=== PATIENT | female | born 1985 | race Caucasian/White ===

== ENCOUNTER 2024-02-17 00:53 | Inpatient (IN) | payer MEDICAID ==
[~2024-02-17] VITALS: Ht 162.6 cm; Wt 73.9 kg
[2024-02-17] MEDS: LORAZEPAM 2MG/ML INJ IM ONE (01:23)
[2024-02-17] MEDS: DIPHENHYDRAMINE 50MG/ML VIAL IM ONE (01:23)
[2024-02-17] MEDS: HALOPERIDOL LACTATE 5MG/ML VIAL IM ONE (01:23)
[2024-02-17 02:47] LABS: BASOPHILS % 0.5 % (0.0-2.0); DIFFERENTIAL COMMENT 0; EOSINOPHILS % 0.4 % (0.0-5.0); HEMOGLOBIN. 12.2 g/dL (12.0-16.0); LYMPHOCYTES % 8.2 % (20.0-50.0); MEAN CORPUSCULAR HEMOGLOBIN 25.6 pg (28.0-32.0); MEAN CORPUSCULAR HGB CONC 32.2 g/dL (31.0-37.0); MEAN CORPUSCULAR VOLUME 79.5 fL (81.0-99.0); MEAN PLATELET VOLUME 9.6 fl (7.4-10.4); MONOCYTES % 7.2 % (2.0-8.0); NEUTROPHILS % 83.7 % (40.0-76.0); PLATELET 188 x1000/uL (130-400); RED BLOOD CELL COUNT 4.78 mill/uL (4.2-5.4); WHITE BLOOD COUNT 11.5 x1000/uL (4.5-11.0)
[2024-02-17 02:54] LABS: CHLORIDE 105 mEq/L (98-107); SODIUM 138 mEq/L (136-145)
[2024-02-17 02:55] LABS: CALCIUM 9.6 mg/dL (8.7-10.4); CARBON DIOXIDE 27 mEq/L (21-32)
[2024-02-17 03:00] LABS: CREATININE 0.9 mg/dL (0.6-1.0); GLUCOSE 99 mg/dL (70-105); UREA NITROGEN BLOOD 10 mg/dL (9-23)
[2024-02-17 03:02] LABS: ACETAMINOPHEN < 2 ug/mL (10-30)
[2024-02-17 03:09] LABS: HCG SCREEN NEGATIVE
[2024-02-17 03:14] LABS: ETHANOL BLOOD < 10 mg/dL (<10)
[2024-02-17] MEDS ORDERED: ONDANSETRON HCL 4MG/2ML INJ IV PRN (05:15)
[2024-02-17] MEDS ORDERED: HYDRALAZINE 20MG/ML VIAL IV PRN (05:15)
[2024-02-17] MEDS ORDERED: MAGNESIUM/ALUMINUM HYDROXIDE/SIMETHICONE 30ML UDC PO PRN (05:15)
[2024-02-17] MEDS ORDERED: CLONIDINE 0.1MG TABLET PO PRN (05:15)
[2024-02-17] MEDS ORDERED: GUAIFENESIN 200MG/10ML SUGAR FREE UDC PO PRN (05:15)
[2024-02-17] MEDS ORDERED: LORAZEPAM 2MG/ML INJ IV PRN (05:15)
[2024-02-17] MEDS ORDERED: ACETAMINOPHEN 325MG TABLET PO PRN (05:15)
[2024-02-17] MEDS ORDERED: DOCUSATE SODIUM 100MG CAPSULE PO PRN (05:15)
[2024-02-17] MEDS: PANTOPRAZOLE SODIUM 40 MG/VIAL IV SCH (05:30)
[2024-02-17] MEDS: MVI, ADULT NO.1 10 ML, FOLIC ACID 1 MG, THIAMINE HCL 100 MG in SODIUM CHLORIDE 0.9% 1,0... IV NR (06:00)
[2024-02-17 11:26] LABS: CHLORIDE 106 mEq/L (98-107); POTASSIUM 3.4 mEq/L (3.5-5.1); SODIUM 140 mEq/L (136-145)
[2024-02-17 11:27] LABS: CARBON DIOXIDE 26 mEq/L (21-32)
[2024-02-17 11:28] LABS: CALCIUM 8.7 mg/dL (8.7-10.4)
[2024-02-17 11:31] LABS: HEMATOCRIT. 33.6 % (36.0-48.0); HEMOGLOBIN. 10.9 g/dL (12.0-16.0); MEAN CORPUSCULAR HEMOGLOBIN 25.7 pg (28.0-32.0); MEAN CORPUSCULAR HGB CONC 32.5 g/dL (31.0-37.0); MEAN PLATELET VOLUME 9.7 fl (7.4-10.4); PLATELET 160 x1000/uL (130-400); RED BLOOD CELL COUNT 4.25 mill/uL (4.2-5.4); RED CELL DISTRIBUTION WIDTH 17.8 % (11.6-14.6); WHITE BLOOD COUNT 8.8 x1000/uL (4.5-11.0)
[2024-02-17 11:32] LABS: CREATININE 0.6 mg/dL (0.6-1.0); GLUCOSE 89 mg/dL (70-105)
[2024-02-17 11:33] LABS: TROPONIN I HIGH SENSITIVITY 6 ng/L (3.0-34); UREA NITROGEN BLOOD 8 mg/dL (9-23)
[2024-02-17 11:34] LABS: ALBUMIN 3.8 g/dL (3.2-4.8); CREATINE KINASE 263 IU/L (34-145); PHOSPHORUS 3.6 mg/dL (2.5-4.9)
[2024-02-17 11:35] LABS: DIFFERENTIAL COMMENT 1
[2024-02-17 11:36] LABS: T4 FREE 1.06 ng/dL (0.89-1.76); THYROID STIMULATING HORMONE 2.33 uIU/mL (0.55-4.78)
[2024-02-17 14:02] LABS: PLATELET ESTIMATE NORMAL
[2024-02-17] MEDS: POTASSIUM CHLORIDE 20MEQ TABLET SR PO NR (14:29)
[2024-02-17] MEDS: MAGNESIUM 2 G PREMIX 50 ML IV NR (14:29)
[2024-02-17 20:32] VITALS: BP 97/45; PULSE 70; RESP 16; TEMP 36.33624
[2024-02-17 20:35] VITALS: BP 97/45; PULSE 70; RESP 16; TEMP 36.3624
[2024-02-18 00:28] VITALS: BP 105/68; PULSE 63; RESP 17; TEMP 36.28068; O2SAT 99
[2024-02-18 03:46] LABS: GLUCOSE URINE NEGATIVE (NEGATIVE); KETONES URINE TRACE (NEGATIVE)
[2024-02-18] MEDS: ACETAMINOPHEN 325MG TABLET PO PRN (03:50)
[2024-02-18 03:55] LABS: *AMPHETAMINES SCREEN URINE NEGATIVE (NEGATIVE); *BARBITURATES SCREEN URINE NEGATIVE (NEGATIVE); *BENZODIAZEPINES SCREEN URINE PRESUMPTIVE POSITIVE (NEGATIVE); *COCAINE SCREEN URINE NEGATIVE (NEGATIVE); CANNABINOID URINE SCREEN PRESUMPTIVE POSITIVE (NEGATIVE); METHADONE URINE SCREEN NEGATIVE (NEGATIVE); OPIATES URINE SCREEN NEGATIVE (NEGATIVE); PHENCYCLIDINE URINE SCREEN NEGATIVE (NEGATIVE)
[2024-02-18 03:56] LABS: ECSTASY MDMA SCREEN URINE NEGATIVE (NEGATIVE)
[2024-02-18 05:25] VITALS: BP 120/78; PULSE 62; RESP 17; TEMP 36.78072; O2SAT 93
[2024-02-18 05:28] LABS: CLARITY URINE HAZY (CLEAR); COLOR URINE YELLOW (YELLOW)
[2024-02-18 05:29] LABS: LEUKOCYTE ESTERASE URINE NEGATIVE (NEGATIVE); NITRITE URINE NEGATIVE (NEGATIVE); OCCULT BLOOD URINE NEGATIVE (NEGATIVE); PH URINE 7.5 (4.5-8.0); PROTEIN URINE NEGATIVE (NEGATIVE); UROBILINOGEN URINE 0.2 E.U./dL (0.2-1.0)
[2024-02-18 05:51] LABS: SQUAMOUS EPITHELIAL CELL URINE 1+ /lpf (RARE/1+)
[2024-02-18 05:55] LABS: RBC URINE 0-2 /hpf (0-2); WBC URINE 0-2 /hpf (0-2)
[2024-02-18 05:56] LABS: BACTERIA URINE NONE SEEN
[2024-02-18 08:00] VITALS: BP 120/69; PULSE 69; RESP 20; TEMP 36.3918; O2SAT 98
[2024-02-18 08:18] LABS: CHLORIDE 107 mEq/L (98-107); POTASSIUM 3.9 mEq/L (3.5-5.1); SODIUM 139 mEq/L (136-145)
[2024-02-18 08:19] LABS: CARBON DIOXIDE 25 mEq/L (21-32)
[2024-02-18 08:20] LABS: CALCIUM 8.8 mg/dL (8.7-10.4)
[2024-02-18 08:22] LABS: DIFFERENTIAL COMMENT 0; EOSINOPHILS % 3.9 % (0.0-5.0); HEMOGLOBIN. 11.3 g/dL (12.0-16.0); LYMPHOCYTES % 28.3 % (20.0-50.0); MEAN CORPUSCULAR HEMOGLOBIN 25.4 pg (28.0-32.0); MEAN CORPUSCULAR HGB CONC 32.2 g/dL (31.0-37.0); MONOCYTES % 8.3 % (2.0-8.0); NEUTROPHILS % 58.5 % (40.0-76.0); PLATELET 152 x1000/uL (130-400); RED BLOOD CELL COUNT 4.43 mill/uL (4.2-5.4); RED CELL DISTRIBUTION WIDTH 17.7 % (11.6-14.6); WHITE BLOOD COUNT 5.1 x1000/uL (4.5-11.0)
[2024-02-18 08:24] LABS: CREATININE 0.6 mg/dL (0.6-1.0); GLUCOSE 86 mg/dL (70-105)
[2024-02-18 08:25] LABS: UREA NITROGEN BLOOD 7 mg/dL (9-23)
[2024-02-18 08:26] LABS: ALANINE AMINOTRANSFERASE 17 IU/L (10-49); ALBUMIN 4.1 g/dL (3.2-4.8); ASPARTATE AMINOTRANSFERASE 21 IU/L (<34)
[2024-02-18 08:27] LABS: BILIRUBIN TOTAL 0.4 mg/dL (0.1-1.0); PROTEIN TOTAL 6.6 g/dL (6.0-8.3)
[2024-02-18 08:55] LABS: BILIRUBIN DIRECT < 0.1 mg/dL (<=3.0)
[2024-02-18] MEDS: FLUOXETINE HCL 10 MG CAPSULE PO SCH (09:08)
[2024-02-18 12:00] VITALS: BP 121/66; PULSE 80; RESP 20; TEMP 36.55848; O2SAT 98
[2024-02-18 14:13] VITALS: BP 121/66; PULSE 62; TEMP 97.8; O2SAT 98
[2024-02-19] MEDS ORDERED: FAMOTIDINE 20MG/2ML VIAL IV SCH (09:00)
== END 2024-02-18 15:10 | disposition home or self-care (01) | DRG 812 ==
LOC: ER 00:53 → 5WST 03:51
PROVIDERS: ADMIT Hospitalist; ATTEND Hospitalist
DX: T40.711A Poisoning by cannabis, accidental (unintentional), initial encounter (principal); G92.8 Other toxic encephalopathy; D72.829 Elevated white blood cell count, unspecified; F32.9 Major depressive disorder, single episode, unspecified; I10 Essential (primary) hypertension; F41.9 Anxiety disorder, unspecified; F12.159 Cannabis abuse with psychotic disorder, unspecified; F12.129 Cannabis abuse with intoxication, unspecified; Z59.86 Financial insecurity; Z78.1 Physical restraint status; Y92.89 Other specified places as the place of occurrence of the external cause; Y90.0 Blood alcohol level of less than 20 mg/100 ml; F10.90 Alcohol use, unspecified, uncomplicated
CPT/HCPCS: 36415; 80048; 80076; 80305; 80307; 80320; 80329; 81003; 82040; 82550; 83735; 84100; 84439; 84443; 84484; 84703; 85025; 93005; 99291; J1200; J1630; J2060; J2470; J3411; J3475; J3490; J7030; G0480